=== PATIENT | female | born 1990 | race Two or more races ===

== ENCOUNTER 2018-01-06 17:13 | Emergency (ER) | payer OTHER ==
[~2018-01-06] VITALS: Ht 154.9 cm; Wt 52.2 kg
[~2018-01-06 17:13] MED LIST: TUSSI-PRES LIQ118 ML PO; VOLTAREM 50 MG PO
== END 2018-01-06 23:53 | disposition home or self-care (01) ==
LOC: ER 17:13
DX: K52.9 Noninfective gastroenteritis and colitis, unspecified (principal)

== ENCOUNTER 2018-01-27 16:00 | Emergency (ER) | payer OTHER ==
[~2018-01-27] VITALS: Ht 162.6 cm; Wt 59.0 kg
== END 2018-01-27 17:40 | disposition home or self-care (01) ==
LOC: ER 16:00
DX: M26.69 Other specified disorders of temporomandibular joint (principal); H92.02 Otalgia, left ear

== ENCOUNTER 2018-03-15 09:02 | Emergency (ER) | payer OTHER ==
[~2018-03-15] VITALS: Ht 154.9 cm; Wt 52.2 kg
[2018-03-15] MEDS ORDERED: BACTRIM DS TAB1 EACH PO (10:43)
[2018-03-15] MEDS ORDERED: FLUCONAZOLE150 MG PO (10:43)
== END 2018-03-15 10:50 | disposition home or self-care (01) ==
LOC: ER 09:02
DX: B37.3 Candidiasis of vulva and vagina (principal); N39.0 Urinary tract infection, site not specified

== ENCOUNTER 2018-11-10 14:45 | Emergency (ER) | payer OTHER ==
[~2018-11-10] VITALS: Ht 154.9 cm; Wt 47.6 kg
[~2018-11-10 14:45] MED LIST changes: +BACTRIM DS TAB1 EACH PO; +FLUCONAZOLE150 MG PO
== END 2018-11-10 17:16 | disposition home or self-care (01) ==
LOC: ER 14:45
DX: R11.11 Vomiting without nausea (principal)

== ENCOUNTER 2019-02-11 23:19 | Emergency (ER) | payer OTHER ==
[~2019-02-11] VITALS: Ht 149.9 cm; Wt 55.3 kg
[2019-02-12] MEDS ORDERED: URIN D.S. TABL1 EACH PO (01:32)
[2019-02-12] MEDS ORDERED: CEFUROXIME500 MG PO (01:32)
== END 2019-02-12 01:39 | disposition home or self-care (01) ==
LOC: ER 23:19
DX: N30.80 Other cystitis without hematuria (principal)

== ENCOUNTER 2019-06-08 07:19 | Outpatient (CLI) | payer OTHER ==
[~2019-06-08 07:19] MED LIST changes: +CEFUROXIME500 MG PO; +URIN D.S. TABL1 EACH PO
== END 2019-06-08 17:24 | disposition home or self-care (01) ==
LOC: LAB 07:19
DX: N95.1 Menopausal and female climacteric states (principal); E28.39 Other primary ovarian failure; E04.1 Nontoxic single thyroid nodule; E55.9 Vitamin D deficiency, unspecified; E78.00 Pure hypercholesterolemia, unspecified

== ENCOUNTER 2023-03-16 20:22 | Emergency (ER) | payer OTHER ==
[~2023-03-16] VITALS: Ht 152.4 cm; Wt 50.8 kg
[2023-03-16 23:22] LABS: HEMATOCRIT 41.3 % (36.0-45.00); HEMOGLOBIN 13.9 g/dL (12.0-15.00); MEAN CELL VOLUME 87.3 fL (80.00-100.00); MEAN CORPUSCULAR HEMOGLOBIN 29.4 pg (27.00-32.0); MEAN CORPUSCULAR HGB CONC 33.7 g/dl (32.0-36.0); PLATELET COUNT 266 K/uL (150-450); RED BLOOD COUNT 4.73 M/uL (4.00-6.00); RED CELL DISTRIBUTION WIDTH 12.4 % (11.5-14.5)
[2023-03-16 23:39] LABS: CALCIUM 8.8 mg/dL (8.5-10.1); CREATININE SERUM 0.55 mg/dL (0.55-1.02); GFR 128.09; POTASSIUM 4.15 mEq/L (3.5-5.1)
[2023-03-17 07:50] LABS: URINE APPEARANCE Clear; URINE BILIRRUBIN Negative (NEGATIVE); URINE BLOOD Negative; URINE COLOR Yellow; URINE GLUCOSE Negative (NEGATIVE); URINE LEUKOCYTE Negative; URINE NITRATE Negative; URINE PROTEIN Negative (NEGATIVE); URINE UROBILINOGEN 0.2 E.U./dl
[2023-03-17 07:53] LABS: URINE EPITHELIAL CELLS 18.3 uL (0.0-38.8); URINE RBC 2.7 uL (0.0-20.8); URINE WBC 5.3 uL (0.0-23.2)
== END 2023-03-17 12:09 | disposition home or self-care (01) ==
LOC: ER 20:22
PROVIDERS: Emergency Medicine
DX: K52.89 Other specified noninfective gastroenteritis and colitis (principal); E86.0 Dehydration; Z20.822 Contact with and (suspected) exposure to COVID-19

== ENCOUNTER 2023-07-24 00:50 | Emergency (ER) | payer OTHER ==
[~2023-07-24] VITALS: Ht 154.9 cm; Wt 54.4 kg
[2023-07-24] MEDS ORDERED: KETOROLAC TROMETHAMINE 30 MG VIAL IM ONE (08:45)
[2023-07-24 09:04] LABS: HEMATOCRIT 39.8 % (36.0-45.00); HEMOGLOBIN 13.7 g/dL (12.0-15.00); MEAN CELL VOLUME 86.5 fL (80.00-100.00); MEAN CORPUSCULAR HEMOGLOBIN 29.8 pg (27.00-32.0); MEAN CORPUSCULAR HGB CONC 34.4 g/dl (32.0-36.0); PLATELET COUNT 297 K/uL (150-450); RED BLOOD COUNT 4.61 M/uL (4.00-6.00); RED CELL DISTRIBUTION WIDTH 12.7 % (11.5-14.5)
== END 2023-07-24 13:08 | disposition home or self-care (01) ==
LOC: ER 00:51
PROVIDERS: Emergency Medicine
DX: M79.10 Myalgia, unspecified site (principal)